=== PATIENT | female | born 1970 | race Caucasian/White ===

== ENCOUNTER 2020-03-14 08:21 | Outpatient (REF) | payer MEDICAID, SELFPAY ==
--- NOTE | 2020-03-14 08:40 | PAPFT_PTH ---
PATIENT: Cami Carvalho LOC: [facility] U#:[id number] AGE/SX: 49/F ROOM: RE03/14/[address]: Ann-Marie Moses NP : 1970 BED: DIS: 03/14/2020 SPEC #: [id number] RECD: 03/15/20 09:37 STATUS: JONO REAmbreen #: [id number] CAMILO: 03/14/20 08:[address]: Ann-Marie Moses NP DEPT: [facility] Cytology RECD BY: Annette Phillips ENTERED: 03/15/20 09:38 SP TYPE: PAPFT OTHR DR: Tom Pineda Tissues: 1 - CX/ENDOCX FOR PAP SMEARS Procedures: PAP THIN PREP/UVM Screening HPV DNA PROBE Comments: [id number] (CHLAMYDIA/GC)
[2020-03-17 01:29] LABS: Chlamydia Result Negative (Negative); GC Result Negative (Negative)
== END 2020-03-14 08:41 ==
LOC: LBN 08:21
PROVIDERS: PCP Family Medicine; Visit Provider Nurse Practitioner Women's Health
DX: Z12.4 Encounter for screening for malignant neoplasm of cervix (principal); Z11.51 Encounter for screening for human papillomavirus (HPV); Z11.3 Encounter for screening for infections with a predominantly sexual mode of transmission; R87.618 Other abnormal cytological findings on specimens from cervix uteri
CPT/HCPCS: 87491; 87591; 88142; 87624

== ENCOUNTER 2020-04-04 01:02 | Outpatient (CLI) | payer MEDICAID, SELFPAY ==
--- NOTE | 2020-04-04 15:43 | DI.MAMMO_ITS ---
EXAM: MG MAMMO SCREENING CLINICAL HISTORY: screening TECHNIQUE: Bilateral full field digital CC and MLO mammographic images were obtained with 3D tomosyn thesis and utilizing computer aided detection (CAD). COMPARISON: Available for comparison. FINDINGS: Masses/Architectural Distortion: None seen. Microcalcifications: No suspicious pleomorphic-type are seen. Skin Thickening/Nipple Retraction: None. IMPRESSION: 1. No significant interval change with no specific features of malignancy noted. 2. Unless there is more urgent need, screening mammography is recommended, as per [place] guidelines. BI-RADS Category 1 - Negative Breast Density - Category C - Heterogeneously dense The mammogram demonstrates the patient's breast tissue is dense. Dense breast tissue is very common a nd is not abnormal but dense breast tissue can make it harder to find cancer on a mammogram. Also, de nse breast tissue may increase their breast cancer risk. This information about the result of the [facility] mogram report was provided to the patient to raise their awareness. Use this report when you speak wi th the patient about their risks for breast cancer, which includes their family history. At that time , you may recommend for more screening tests (Ultrasound or MRI) as they might be useful based on the ir risk. A negative radiographic report should not delay biopsy if a dominant or clinically suspicious mass is present. Up to ten percent of cancers are not identified on mammography. A negative report may reinforce clinical impression. Adenosis and dense breasts may obscure an underlying neoplasm. False positive reports average 6 to 10%. Patient will receive a letter notifying them of these results.
== END 2020-04-04 01:22 ==
PROVIDERS: PCP Family Medicine; Visit Provider Nurse Practitioner Women's Health
DX: Z12.31 Encounter for screening mammogram for malignant neoplasm of breast (principal); R92.2 Inconclusive mammogram
CPT/HCPCS: 77063; 77067

== ENCOUNTER 2021-09-05 00:47 | Outpatient (CLI) | payer MEDICAID, SELFPAY ==
--- NOTE | 2021-09-05 09:53 | DI.MAMMO_ITS ---
Exam(s) MAMMO SCREENING EXAM: MAMMO SCREENING CLINICAL HISTORY: screening. TECHNIQUE: Bilateral full field digital CC and MLO mammographic images were obtained with 3D tomosyn thesis and utilizing computer aided detection (CAD). COMPARISON: Prior mammograms were reviewed, the most recent being March 2020. FINDINGS: Fibroglandular tissue pattern is again noted be dense, somewhat decreasing the sensitivity of the ced mogram for finding hidden lesions. There are no obvious new spiculated masses nor malignant appearing microcalcification groups in eithe r breast. There is no significant architectural distortion nor skin thickening-retraction. IMPRESSION: Dense bilateral fibroglandular tissue. No obvious radiographic evidence of malignancy. BI-RADS Category 1 - Negative Breast Density - Category C - Heterogeneously dense Breast density Category C or D implies that the patient has dense breast tissue. Dense breast tissue can make it harder to find cancer on a mammogram. Dense breast tissue is also associated with an incr eased risk of breast cancer. This information about the result of the mammogram report was provided to the patient to raise their awareness. Use this report when you speak with the patient about their risks for breast cancer, which includes their family history. At that time, you may recommend additional screening tests (Ultrasoun d or MRI) as these tests may add significant information. A negative radiographic report should not delay biopsy if a dominant or clinically suspicious mass is present. Up to ten percent of cancers are not identified on mammography. A negative report may reinforce clinical impression. Adenosis and dense breasts may obscure an underlying neoplasm. False positive reports average 6 to 10%. Patient will receive a letter notifying them of these results.
== END 2021-09-05 01:07 ==
PROVIDERS: PCP Family Medicine; Visit Provider Nurse Practitioner Women's Health
DX: Z12.31 Encounter for screening mammogram for malignant neoplasm of breast (principal); R92.8 Other abnormal and inconclusive findings on diagnostic imaging of breast
CPT/HCPCS: 77063; 77067

== ENCOUNTER 2022-08-11 03:01 | Outpatient (CLI) | payer MEDICAID, SELFPAY ==
[2022-08-11 15:19] LABS: Calculated LDL 109 mg/dL (<100); Cholesterol 233 mg/dL (<200); Glucose 110 mg/dL (74-106); HDL Cholesterol 66 mg/dL (40-60); TSH (W/Ref FT4) 1.69 uIU/mL (0.36-3.74); Triglyceride 290 mg/dL (<150)
== END 2022-08-11 03:02 | disposition home or self-care (01) ==
LOC: LBO 03:01
PROVIDERS: PCP Family Medicine; Visit Provider Nurse Practitioner Women's Health
DX: Z13.220 Encounter for screening for lipoid disorders (principal); Z13.1 Encounter for screening for diabetes mellitus; Z13.29 Encounter for screening for other suspected endocrine disorder
CPT/HCPCS: 36415; 80061; 82947; 84443

== ENCOUNTER 2022-10-08 01:08 | Outpatient (CLI) | payer MEDICAID, SELFPAY ==
--- NOTE | 2022-10-08 07:45 | DI.MAMMO_ITS ---
Exam(s) MAMMO SCREENING EXAM: MAMMO SCREENING CLINICAL HISTORY: screening,z12.39 TECHNIQUE: Bilateral full field digital CC and MLO mammographic images were obtained with 3D tomosyn thesis and utilizing computer aided detection (CAD). COMPARISON: Available for comparison. FINDINGS: Masses/Architectural Distortion: There is an asymmetric density in the central right breast on the ML O view 2.7 cm from the nipple. This may represent overlying fibroglandular tissue but a spot mely karen views requested for further evaluation. Microcalcifications: No suspicious pleomorphic-type are seen. Skin Thickening/Nipple Retraction: None. IMPRESSION: 1. Asymmetric density in the central right breast on the MLO view. 2. Spot compression views requested for further evaluation. Complete right breast ultrasound may be indicated at that time. BI-RADS Category 0 - Assessment Incomplete: Need additional imaging evaluation Breast Density - Category C - Heterogeneously dense Breast density category C or D implies that the patient has dense breast tissue. Dense breast tissue is very common and is not abnormal but dense breast tissue can make it harder to find cancer on a ma mmogram. Also, dense breast tissue may increase their breast cancer risk. This information about the result of the mammogram report was provided to the patient to raise their awareness. Use this report when you speak with the patient about their risks for breast cancer, which includes their family hist ory. At that time, you may recommend for more screening tests (Ultrasound or MRI) as they might be us eful based on their risk. A negative radiographic report should not delay biopsy if a dominant or clinically suspicious mass is present. Up to ten percent of cancers are not identified on mammography. A negative report may reinforce clinical impression. Adenosis and dense breasts may obscure an underlying neoplasm. False positive reports average 6 to 10%. Patient will receive a letter notifying them of these results.
== END 2022-10-08 01:28 ==
LOC: DI 01:09
PROVIDERS: PCP Family Medicine; Visit Provider Nurse Practitioner Women's Health
DX: Z12.31 Encounter for screening mammogram for malignant neoplasm of breast (principal); R92.8 Other abnormal and inconclusive findings on diagnostic imaging of breast
CPT/HCPCS: 77063; 77067

== ENCOUNTER 2022-10-09 11:38 | Outpatient (CLI) | payer MEDICAID, SELFPAY ==
--- NOTE | 2022-10-09 | DI.MAMMO_ITS ---
Exam(s) MG MAMMO SCREEN CALL BACK UNI US BREAST RT COMPLETE EXAM: MG MAMMO SCREEN CALL BACK UNI CLINICAL HISTORY: F/U MAMMO, ASYMMETRIC DENSITY RT BREAST. TECHNIQUE: mediolateral oblique spot compression digital Mammography views of the rightbreast with Tomosynthesis and right breast ultrasound. COMPARISON: MG SCREENING [facility] MAMMO W/CAD DIGI from 07/28/2012 MG MG MAMMO SCREENING from 04/04/2020 MG MG MAMMO SCREENING from 09/05/2021 MG MG MAMMO SCREENING from 10/08/2022 US US BREAST RT COMPLETE from 10/09/2022 FINDINGS: Mammography/Tomosynthesis: Masses/Architectural Distortion: None seen. No persistent suspicious abnormality is seen on the spot compression view Microcalcifictions: No suspicious pleomorphic-type are seen. Skin Thickening/Nipple Retraction: None. Right breast US: Echotexture: Normal appearance of the glandular tissue. Shadowing: No suspicious foci. Cyst: For cysts noted in the upper outer quadrant ranging from 4 millimeters to 8 millimeters in size . Solid lesions: None seen. Ductal dilation: None. IMPRESSION: 1. No evidence of malignancy is noted. 2. Unless there is more urgent need, follow-up screening mammography is recommended, as per [employer] guidelines. 3. The findings were discussed with the patient on the date of the examination. BI-RADS Category 2 - Benign Findings Breast Density - Category C - Heterogeneously dense A mammogram that demonstrates density of C or D indicates the patient's breast tissue is dense. Dense breast tissue is very common and is not abnormal, but dense breast tissue can make it harder to find cancer on a mammogram. Also, dense breast tissue may increase their breast cancer risk. This informa tion about the result of the mammogram report was provided to the patient to raise their awareness. U se this report when you speak with the patient about their risks for breast cancer, which includes th eir family history. At that time, you may recommend for more screening tests (Ultrasound or MRI) as t hey might be useful based on their risk. A negative radiographic report should not delay biopsy if a dominant or clinically suspicious mass is present. Up to ten percent of cancers are not identified on mammography. A negative report may reinforce clinical impression. Adenosis and dense breasts may obscure an underlying neoplasm. False positive reports average 6 to 10%. Patient will receive a letter notifying them of these results.
== END 2022-10-09 11:58 ==
LOC: DI 11:38
PROVIDERS: PCP Family Medicine; Visit Provider Nurse Practitioner Women's Health
DX: Z12.31 Encounter for screening mammogram for malignant neoplasm of breast (principal); R92.8 Other abnormal and inconclusive findings on diagnostic imaging of breast; N60.11 Diffuse cystic mastopathy of right breast
CPT/HCPCS: 76642; 77063; 77067

== ENCOUNTER 2023-09-30 10:00 | Outpatient (REF) | payer MEDICAID, SELFPAY ==
--- NOTE | 2023-09-30 09:30 | PAPFT_PTH ---
PATIENT: Cami Carvalho LOC: [facility] U#:[id number] AGE/SX: 53/F ROOM: RE09/30/[address]: Ann-Marie Moses NP : 1970 BED: DIS: 09/30/2023 SPEC #: [id number] RECD: 09/30/23 12:48 STATUS: JONO JARQUIN #: [id number] CAMILO: 09/30/23 09:[address]: Ann-Marie Moses NP DEPT: [facility] Cytology RECD BY: Noris Valerio ENTERED: 09/30/23 12:48 SP TYPE: PAPFT OTHR DR: Tom Pineda Tissues: 1 - CX/ENDOCX FOR PAP SMEARS Procedures: PAP THIN PREP/UVM Screening HPV DNA PROBE Comments: [id number]
== END 2023-09-30 10:01 | disposition home or self-care (01) ==
LOC: LBN 10:00
PROVIDERS: PCP Family Medicine; Visit Provider Nurse Practitioner Women's Health
DX: Z01.419 Encounter for gynecological examination (general) (routine) without abnormal findings (principal)
CPT/HCPCS: 88142; 87624

== ENCOUNTER → 2023-10-14 02:00 | Outpatient (CLI) | payer MEDICAID, SELFPAY ==
--- NOTE | 2023-10-14 06:30 | DI.MAMMO_ITS ---
Exam(s) MAMMO SCREENING EXAM: MAMMO SCREENING CLINICAL HISTORY: screening,z12.39 TECHNIQUE: Bilateral full field digital CC and MLO mammographic images were obtained with 3D tomosyn thesis and utilizing computer aided detection (CAD). COMPARISON: Available for comparison. FINDINGS: Masses/Architectural Distortion: None seen. Microcalcifications: No suspicious pleomorphic-type are seen. Skin Thickening/Nipple Retraction: None. IMPRESSION: 1. No significant interval change with no specific features of malignancy noted. 2. Unless there is more urgent need, screening mammography is recommended, as per [employer] [employer] guidelines. BI-RADS Category 1 - Negative Breast Density - Category C - Heterogeneously dense Breast density category C or D implies that the patient has dense breast tissue. Dense breast tissue is very common and is not abnormal but dense breast tissue can make it harder to find cancer on a ma mmogram. Also, dense breast tissue may increase their breast cancer risk. This information about the result of the mammogram report was provided to the patient to raise their awareness. Use this report when you speak with the patient about their risks for breast cancer, which includes their family hist ory. At that time, you may recommend for more screening tests (Ultrasound or MRI) as they might be us eful based on their risk. A negative radiographic report should not delay biopsy if a dominant or clinically suspicious mass is present. Up to ten percent of cancers are not identified on mammography. A negative report may reinforce clinical impression. Adenosis and dense breasts may obscure an underlying neoplasm. False positive reports average 6 to 10%. Patient will receive a letter notifying them of these results.
== END ==
PROVIDERS: PCP Family Medicine; Visit Provider Nurse Practitioner Women's Health
DX: Z12.31 Encounter for screening mammogram for malignant neoplasm of breast (principal)
CPT/HCPCS: 77063; 77067

== ENCOUNTER 2023-10-27 16:34 | Outpatient (REF) | payer BC, MEDICAID, SELFPAY ==
--- NOTE | 2023-10-27 14:30 | ENDO_PTH ---
PATIENT: Cami Carvalho LOC: [facility] U#:[id number] AGE/SX: 53/F ROOM: RE10/27/[address]: Mellisa Cabezas DO : 1970 BED: DIS: 10/27/2023 SPEC #: [id number] RECD: 10/27/23 16:40 STATUS: JONO REQ #: [id number] CAMILO: 10/27/23 14:[address]: Mellisa Cabezas DEPT: Surgical Specimen RECD BY: Noris Valerio ENTERED: 10/27/23 16:40 SP TYPE: Endo OTHR DR: Tom Pineda Tissues: 1 - ENDOCERVICAL BX/CURRETTE Procedures: GROSS AND MICRO LEVEL 4 Comments: [id number]
== END 2023-10-27 16:35 | disposition home or self-care (01) ==
LOC: LBN 16:34
PROVIDERS: PCP Family Medicine; Visit Provider Obstetrics & Gynecology
DX: R87.612 Low grade squamous intraepithelial lesion on cytologic smear of cervix (LGSIL) (principal)
CPT/HCPCS: 88305

== ENCOUNTER 2024-07-19 01:12 | Outpatient (CLI) | payer BC, SELFPAY ==
--- NOTE | 2024-07-19 15:02 | DI.RAD_ITS ---
Exam(s) XR KNEE RT 3V AP,LAT,CARLO EXAM: XR KNEE RT 3V AP,LAT,CARLO CLINICAL HISTORY: Pain in rt knee, M25.561. TECHNIQUE: 2D digital imaging was performed of the right knee. Four views obtained. AP, lateral and PA tunnel views were obtained. COMPARISON: There are no priors for comparison. FINDINGS: BONES: No acute fracture is present. No bony destructive lesion is seen. JOINTS: The knee is normally aligned. No joint effusion is seen. SOFT TISSUE: Normal. IMPRESSION: Unremarkable radiographs of the right knee. DATA REPOSITORY: RADIATION DOSE DELIVERED:
--- NOTE | 2024-07-19 15:03 | DI.RAD_ITS ---
Exam(s) XR KNEE LT 3V AP,LAT,CARLO EXAM: XR KNEE LT 3V AP,LAT,CARLO CLINICAL HISTORY: Pain in lt knee, M25.562. TECHNIQUE: 2D digital imaging was performed of the left knee. Three images were obtained. AP, late ral and PA tunnel views were obtained. COMPARISON: There are no priors for comparison. FINDINGS: BONES: No acute fracture is present. No bony destructive lesion is seen. JOINTS: There is mild narrowing of the medial femoral tibial joint. No joint effusion is seen. No lo ose body. SOFT TISSUE: Normal. IMPRESSION: Mild narrowing of the medial femoral tibial joint. Otherwise unremarkable left knee. DATA REPOSITORY: RADIATION DOSE DELIVERED:
== END 2024-07-19 01:32 ==
PROVIDERS: PCP Family Medicine; Visit Provider Family Medicine
DX: M25.562 Pain in left knee (principal); M25.561 Pain in right knee
CPT/HCPCS: 73562

== ENCOUNTER 2024-08-10 04:08 | Outpatient (CLI) | payer BC, SELFPAY ==
[2024-08-10 13:46] LABS: ESR 5 mm/hr (0-30)
[2024-08-10 14:28] LABS: C-Reactive Protein < 0.50 mg/dL (<or=0.5)
[2024-08-10 21:59] LABS: Rheumatoid Factor <8.6 IU/mL (<12.0)
[2024-08-11 10:10] LABS: Lyme Ab w Rflx to Lyme Confirm Negative (Negative)
[2024-08-11 11:54] LABS: ANA Interpretation Negative (Negative)
[2024-08-13 00:09] LABS: Anaplasma phagocytophilum Negative (Negative); B. miyamotoi PCR Negative (Negative); Babesia divergens/MO-1 Negative (Negative); Babesia duncani Negative (Negative); Babesia microti Negative (Negative); Ehrlichia chaffeensis Negative (Negative); Ehrlichia ewingii/canis Negative (Negative); Ehrlichia muris eauclairensis Negative (Negative)
== END 2024-08-10 04:09 | disposition home or self-care (01) ==
LOC: LBO 04:08
PROVIDERS: PCP Family Medicine; Visit Provider Student in an Organized Health Care Education/Training Program
DX: M23.91 Unspecified internal derangement of right knee (principal); M23.92 Unspecified internal derangement of left knee
CPT/HCPCS: 36415; 85652; 87798; 86038; 86140; 86431; 86618

== ENCOUNTER 2024-10-05 08:49 | Outpatient (REF) | payer BC, SELFPAY ==
--- NOTE | 2024-10-05 08:30 | PAPFT_PTH ---
PATIENT: Cami Carvalho LOC: [facility] U#:[id number] AGE/SX: 54/F ROOM: RE10/05/[address]: Ann-Marie Moses NP : 1970 BED: DIS: 10/05/2024 SPEC #: [id number] RECD: 10/05/24 12:18 STATUS: JONO REQ #: [id number] CAMILO: 10/05/24 08:[address]: Ann-Marie Moses NP DEPT: [facility] Cytology RECD BY: Noris Valerio ENTERED: 10/05/24 12:18 SP TYPE: PAPFT OTHR DR: Marlyn Alexander Tissues: 1 - CX/ENDOCX FOR PAP SMEARS Procedures: PAP THIN PREP/UVM Screening HPV DNA PROBE Comments: [id number] (HPV 16 & 18/45)
== END 2024-10-05 08:50 | disposition home or self-care (01) ==
LOC: LBN 08:49
PROVIDERS: PCP Family Medicine; Visit Provider Nurse Practitioner Women's Health
DX: Z12.4 Encounter for screening for malignant neoplasm of cervix (principal); Z01.419 Encounter for gynecological examination (general) (routine) without abnormal findings
CPT/HCPCS: 88142; 87624

== ENCOUNTER 2024-10-26 01:27 | Outpatient (CLI) | payer BC, SELFPAY ==
--- NOTE | 2024-10-26 12:45 | DI.MAMMO_ITS ---
Exam(s) MAMMO SCREENING EXAM: MAMMO SCREENING CLINICAL HISTORY: screening. TECHNIQUE: Bilateral full field digital CC and MLO mammographic images were obtained with 3D tomosyn thesis and utilizing computer aided detection (CAD). COMPARISON: Prior mammograms were reviewed. FINDINGS: The fibroglandular tissue pattern is again noted be moderately dense. There are no CAD designations. No new left breast findings. In the right breast the MLO tomosynthesis views there are suggestions of 2 possible nodules, both sveta suring approximately 7 mm located 1 cm and 2 cm in from the nipple on the MLO view. Additional imagi ng required. There are no malignant-appearing microcalcification groups in this region nor elsewhere in either kamilah ast. There is no significant architectural distortion nor skin thickening-retraction. IMPRESSION: Dense bilateral fibroglandular tissue. No obvious radiographic evidence of malignancy in left breast . Two asymmetric densities-possible nodules in the right breast. Spot compression right breast MLO vie w and breast ultrasound recommended. BI-RADS Category 0 - Incomplete: Need additional imaging evaluation Breast Density - Category C - Heterogeneously dense Breast density Category C or D implies that the patient has dense breast tissue. Dense breast tissue can make it harder to find cancer on a mammogram. Dense breast tissue is also associated with an incr eased risk of breast cancer. This information about the result of the mammogram report was provided to the patient to raise their awareness. Use this report when you speak with the patient about their risks for breast cancer, which includes their family history. At that time, you may recommend additional screening tests (Ultrasoun d or MRI) as these tests may add significant information. A negative radiographic report should not delay biopsy if a dominant or clinically suspicious mass is present. Up to ten percent of cancers are not identified on mammography. A negative report may reinforce clinical impression. Adenosis and dense breasts may obscure an underlying neoplasm. False positive reports average 6 to 10%. Patient will receive a letter notifying them of these results.
== END 2024-10-26 01:47 ==
LOC: DI 01:27
PROVIDERS: PCP Family Medicine; Visit Provider Nurse Practitioner Women's Health
DX: Z12.31 Encounter for screening mammogram for malignant neoplasm of breast (principal); R92.323 Mammographic fibroglandular density, bilateral breasts
CPT/HCPCS: 77063; 77067

== ENCOUNTER 2024-10-26 14:39 | Outpatient (CLI) | payer BC, SELFPAY ==
--- NOTE | 2024-10-26 14:15 | DI.RAD_ITS ---
Exam(s) XR SHOULDER RT COMPLETE 2+V EXAM: XR SHOULDER RT COMPLETE 2+V CLINICAL HISTORY: RIGHT SHOULDER PAIN. TECHNIQUE: 2D digital imaging was performed. Three views. COMPARISON: MR MRI RIGHT SHOULDER from 11/25/2017 CR XR SHOULDER RIGHT from 08/31/2018 CR XR SHOULDER RIGHT from 04/24/2020 FINDINGS: BONES: No acute fracture is present. No bony destructive lesion is seen. A sclerotic lesion is again noted in the proximal humeral shaft, unchanged from priors. Metallic anchor in proximal humeral sha ft. JOINTS: No dislocation present. The glenohumeral joint space is maintained. No significant degenera tive changes. The humeral head appears slightly superiorly positioned with respect to the glenoid wh ich could indicate chronic rotator cuff tear. Mild degenerative changes at the AC joint and undersur face of the acromion. SOFT TISSUE: Normal. IMPRESSION: Stable sclerotic lesion in the proximal humerus represent enchondroma versus bone infarct. No new ab normalities. DATA REPOSITORY: RADIATION DOSE DELIVERED:
== END 2024-10-26 14:40 | disposition home or self-care (01) ==
LOC: DIORS 14:40
PROVIDERS: PCP Family Medicine; Visit Provider Student in an Organized Health Care Education/Training Program
DX: M25.511 Pain in right shoulder (principal); M75.101 Unspecified rotator cuff tear or rupture of right shoulder, not specified as traumatic
CPT/HCPCS: 73030

== ENCOUNTER 2024-11-02 02:08 | Outpatient (CLI) | payer BC, SELFPAY ==
--- NOTE | 2024-11-02 | DI.MAMMO_ITS ---
Exam(s) MG MAMMO SCREEN CALL BACK UNI US BREAST RT COMPLETE EXAM: MG MAMMO SCREEN CALL BACK UNI and U/S breast RT complete CLINICAL HISTORY: F/U ABNL MAMMO, TWO ASYMMETRIC DENSITIES, POSSIBLE NODULES RT BREAST, R92.8. TECHNIQUE: Craniocaudal and mediolateral oblique Full Field Digital Mammography views of the right b reast with Computer Aided Diagnosis followed by Tomosynthesis and complete right breast ultrasound. All 4 quadrants of the right breast were evaluated sonographically. The right axilla and right retro areolar region were also interrogated sonographically. COMPARISON: Comparison is made with prior examinations. FINDINGS: Mammography/Tomosynthesis: Masses/Architectural Distortion: The nodule in the supra-areolar region on the MLO view persists and is well-circumscribed. The other nodule does not persist with the additional views. Microcalcifictions: No suspicious pleomorphic-type are seen. Skin Thickening/Nipple Retraction: None. Complete right breast US: Echotexture: Normal appearance of the glandular tissue. Shadowing: No suspicious foci. Cyst: Multiple simple cysts are seen. There is a simple cyst at the 1 o'clock position of the right breast which likely accounts for the mammographic abnormality. Solid lesions: None seen. Ductal dilation: None. IMPRESSION: 1. No evidence of malignancy is noted. 2. Unless there is more urgent need, follow-up screening mammography is recommended, as per [employer] guidelines. 3. The findings were discussed with the patient on the date of the examination. BI-RADS Category 2 - Benign Findings Breast Density - Category C - Heterogeneously dense Breast density Category C or D implies that the patient has dense breast tissue. Dense breast tissue can make it harder to find cancer on a mammogram. Dense breast tissue is also associated with an incr eased risk of breast cancer. This information about the result of the mammogram report was provided to the patient to raise their awareness. Use this report when you speak with the patient about their risks for breast cancer, which includes their family history. At that time, you may recommend additional screening tests (Ultrasoun d or MRI) as these tests may add significant information. A negative radiographic report should not delay biopsy if a dominant or clinically suspicious mass is present. Up to ten percent of cancers are not identified on mammography. A negative report may reinforce clinical impression. Adenosis and dense breasts may obscure an underlying neoplasm. False positive reports average 6 to 10%. Patient will receive a letter notifying them of these results.
== END 2024-11-02 02:28 ==
LOC: DI 02:09
PROVIDERS: PCP Family Medicine; Visit Provider Nurse Practitioner Women's Health
DX: Z12.31 Encounter for screening mammogram for malignant neoplasm of breast (principal); R92.8 Other abnormal and inconclusive findings on diagnostic imaging of breast; R92.333 Mammographic heterogeneous density, bilateral breasts; D24.1 Benign neoplasm of right breast
CPT/HCPCS: 76642; 77063; 77067

== ENCOUNTER 2024-11-16 00:48 | Outpatient (CLI) | payer BC, SELFPAY ==
--- NOTE | 2024-11-16 07:15 | DI.MRI_ITS ---
Exam(s) MR UPPER JOINT RT WO EXAM: MR UPPER JOINT RT WO CLINICAL HISTORY: R SHOULDER PAIN,rt rotator cuff tear,m75.101 TECHNIQUE: Multiplanar multisequence MRI of the shoulder was performed. COMPARISON: CR XR SHOULDER LEFT, XR SHOULDER RIGHT from 11/19/2017 MR MRI RIGHT SHOULDER from 11/25/2017 MR MRI RIGHT SHOULDER from 11/25/2017 CR XR SHOULDER RIGHT from 08/31/2018 CR XR SHOULDER RT COMPLETE 2+V from 10/26/2024 FINDINGS: MARROW:There is again noted and extensive intramedullary bone lesion extending from the metaphysis do wn into the diaphysis of the right humerus beyond the field of view of this study and not associated with cortical disruption nor soft tissue mass nor abnormal signal within the adjacent musculature and soft tissues. 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 It was 1st documented on M RI scan of November 2017. There is no evidence of bone lesion in the osseous glenoid. There is the 4 x 5 mm degenerative subarticular cyst at the greater tuberosity level subjacent to the supraspinatus inse rtion site. There has been interval rotator cuff tendon repair and biceps tenodesis site is noted in the proximal humeral diaphysis. GLENOHUMERAL JOINT: No joint effusion nor obvious loose intra-articular bodies. Mild thinning of the articular cartilage but no obvious prominent chondral defects.. There is a small osteophyte on the inferior articular surface of the humeral head. There are no degenerative subarticular cysts in the osseous glenoid. ROTATOR CUFF MECHANISM: AC JOINT/ACROMIUM: No evidence of surgical widening of the AC joint space.There are mild degenerative changes in the AC joint. There is a small degenerative subarticular cyst in the anterior aspect of the clavicular side of the joint. No downgoing osteophytes.. There is no evidence of os acromiale. Supraspinatus: There is a surgically created fastener channel in the humeral head at the greater tube rosity level. There is thinning of the supraspinatus tendon. On 1 of the fat sat T2 weighted sagitt al images there is a continuity of fluid signal seen through the thickness of the tendon located 1.4 cm proximal to the foot pad insertion which is either a very thin full-thickness tear or partial tear , given that there is no fluid in the overlying subacromial/subdeltoid bursa space. There is no retr action. In addition, slightly lateral to this is bursal side signal abnormality at the supraspinatus -infraspinatus conjoined tendon insertion site consistent with partial thickness tearing on the bursa l side. This is just medial to the foot pad insertion site. There is no muscle atrophy. Infraspinatus: As above. No atrophy. Teres Minor: Intact. No evidence of tear nor muscle atrophy. Subscapularis/anterior cuff: Intact. No abnormal signal at the level of the multipennate insertional fibers. No significant tear nor atrophy. BICEPS TENDON: The tendon is absent from the inter tubercular groove as there is a tenodesis site on the anterior aspect of the proximal diaphysis of the humerus. LABRUM: No evidence of paralabral cysts. Superior labrum is intact. Posterior labrum is intact. De nsity associated with the anterosuperior labrum is possibly remnant biceps tendon stump attachment si te. Just below this level in the anterior labrum there is a thin fluid linear signal which may be a small anterior labral tear (axial PD fat-sat series 3001/image 13) The inferior labrum is intact as is the inferior glenohumeral ligament. QUADRILATERAL SPACE: No evidence of mass in the region of the axillary nerve and dorsal circumflex hu meral vessels. Visualized triceps muscle at this level appears unremarkable. IMPRESSION: 1. Compared to the prior MRI scan of November 2017 there has been interval rotator cuff surgery and biceps tenodesis. 2. There is some thinning of the supraspinatus tendon with a bursal sided partial thickness tear at t he conjoined tendon level. There is also a very thin line of fluid signal seen through the supraspin atus at the junction of the mid and lateral thirds of the humeral head which may be a very thin full- thickness tear, not associated with fluid in the overlying subacromial-subdeltoid bursa nor retractio n of the musculotendinous junction. 3. Thin linear lucency in the anterior labrum consistent with thin anterior labral tear (axial PD fat -sat series 3001/image 13). There is no evidence of paralabral cyst. The remainder of the labrum ap pears intact in this patient who is had biceps tenodesis. 4. There are mild degenerative changes in the glenohumeral joint and AC joint. 5. There is a long length intramedullary lesion again noted extending from the metaphysis of the upp er humerus down into the diaphysis beyond the field of view of this shoulder MRI. This has been pres ent since at least 2018 when was 1st mentioned and is not associated with cortical breakthrough nor a bnormal signal in the adjacent soft tissues. This is most probably a prominent enchondroma versus bone infarct. There is no evidence of associate d pathologic fracture. DATA REPOSITORY:
== END 2024-11-16 01:08 ==
LOC: DI 00:48
PROVIDERS: PCP Family Medicine; Visit Provider Student in an Organized Health Care Education/Training Program
DX: M75.121 Complete rotator cuff tear or rupture of right shoulder, not specified as traumatic (principal)
CPT/HCPCS: 73221

== ENCOUNTER 2024-11-18 08:19 | Outpatient (CLI) | payer BC, SELFPAY ==
[2024-11-18 13:31] LABS: HCT 39.9 % (36.0-46.0); HGB 13.3 g/dL (11.2-15.7); MCH 30.5 pg (27.0-33.0); MCHC 33.3 % (32.0-36.0); MCV 92 fL (80-95); MPV 9.3 fL (8.0-11.0); Platelet Count 254 10^3/uL (130-400); RBC 4.36 10^6/uL (3.93-5.22); RDW-SD 40.4 fL; WBC 4.99 10^3/uL (4.4-10.8)
[2024-11-18 13:35] LABS: ESR 2 mm/hr (0-30)
[2024-11-18 14:03] LABS: C-Reactive Protein < 0.50 mg/dL (<or=0.5)
== END 2024-11-18 08:20 | disposition home or self-care (01) ==
LOC: LBO 08:19
PROVIDERS: PCP Family Medicine; Visit Provider Student in an Organized Health Care Education/Training Program
DX: M75.101 Unspecified rotator cuff tear or rupture of right shoulder, not specified as traumatic (principal)
CPT/HCPCS: 36415; 85027; 85652; 86140

== ENCOUNTER 2025-04-27 13:22 | Outpatient (REF) | payer BC, SELFPAY ==
[2025-04-27 21:19] LABS: HCT 42.1 % (36.0-46.0); HGB 13.7 g/dL (11.2-15.7); MCH 29.7 pg (27.0-33.0); MCHC 32.5 % (32.0-36.0); MCV 91 fL (80-95); MPV 10.3 fL (8.0-11.0); Platelet Count 302 10^3/uL (130-400); RBC 4.61 10^6/uL (3.93-5.22); RDW 12.2 % (11.7-14.6); RDW-SD 41.0 fL; WBC 9.13 10^3/uL (4.4-10.8)
[2025-04-27 21:34] LABS: ALT 44 U/L (14-59); AST 27 U/L (15-37); Albumin 3.9 g/dL (3.4-5.0); Alkaline Phosphatase 69 U/L (46-116); Anion Gap 10.4 mmol/L (3-11); BUN 10 mg/dL (7-18); Bilirubin, Total 0.4 mg/dL (0.2-1.0); CO2 27.6 mmol/L (21.0-32.0); Calcium 8.4 mg/dL (8.5-10.1); Chloride 99 mmol/L (98-107); Estimated GFR 102.71 (mL/min/1.73m2); Glucose 81 mg/dL (74-106); Magnesium 2.0 mg/dL (1.8-2.4); Potassium 4.2 mmol/L (3.5-5.1); Sodium 137 mmol/L (136-145); Total Protein 7.1 g/dL (6.4-8.2)
[2025-04-30 23:35] LABS: B. miyamotoi PCR Negative (Negative); Babesia divergens/MO-1 Negative (Negative); Ehrlichia muris eauclairensis Negative (Negative)
[2025-05-01 11:39] LABS: Lyme Ab w Rflx to Lyme Confirm Negative (Negative)
== END 2025-04-27 13:23 | disposition home or self-care (01) ==
LOC: NCHCN 13:22
PROVIDERS: PCP Family Medicine; Visit Provider Nurse Practitioner Family
DX: R53.81 Other malaise (principal)
CPT/HCPCS: 80053; 85027; 87798; 83735; 86618